=== PATIENT | female | born 1945 | race Caucasian/White ===

== ENCOUNTER 2018-12-30 07:07 | Day surgery (SDC) | payer MEDICARE ==
[2018-12-29 12:40] VITALS: BMI 24.5
--- NOTE | 2018-12-30 09:18 | RAD ---
Exam: COMPLETE SPINE MYELOGRAM: HISTORY: Neck pain, thoracic spine pain, lumbar spine pain. Exposure: 0.6 minutes, 99.8 mGy*cm^2 FINDINGS: [employer] radiographs: 2 views cervical spine, 2 views thoracic spine and 2 views lumbar spine demonstrate preservation of v ertebral body height. There is mild loss of disc space height throughout the spine. Osteophyte formation at C3-C4, C4-C5 is noted. Facet hypertrophy in the cervical spine as noted in the AP projec tion Thoracic spine vertebral body height is maintained. There is mild loss of disc space height in the mi dthoracic spine. Grade 1 anterolisthesis of L5 upon S1. TECHNIQUE: Consent obtained to perform a lumbar, thoracic and cervical myelogram. Patient's back was evaluated. The L2-L3 level was deemed appropriate. Skin was prepped and draped in a sterile fashion. 1% lidocaine, buffered with sodium bicarbonate was used for local anesthesia. Under fluoroscopic guidanc e, a 22-gauge spinal needle was advanced into the CSF space. A total of 10 cc of Isovue-M 300 contrast was administered intrathecally. Patient tolerated the procedure well. No immediate or postpr ocedure complications. IMPRESSION: Successful complete spine myelogram. Transcribed Date/Time: 12/30/2018 9:41 AM
--- NOTE | 2018-12-30 09:23 | CT ---
Exam: Post myelogram cervical spine CT HISTORY:Neck pain. COMPARISON: None Colon Cervical spine CT is performed in the axial length. Three-dimensional reformatted images are submitte d FINDINGS: Cervical spine vertebral body height is maintained. There is no evidence of fracture. Appropriate ali gnment of the lateral masses of C1 and C2 as well as the facets. Intact odontoid process. Soft tissue neck structures are unremarkable. Mildly heterogeneous thyroid gland. Upper mediastinum and luz maria ng apices are unremarkable. C2-C3: No significant central canal stenosis. Neural foramina are patent. Mild left facet hypertrophy . C3-C4: Broad-based disc osteophyte complex abuts the thecal sac. No significant central canal stenosi s. Mild right foraminal narrowing due to uncal vertebral hypertrophy. Left neural foramen is patent. C4-C5:No significant central canal stenosis. Neural foramina are patent. C5-C6: Broad-based disc osteophyte complex abuts the thecal sac. The midline ventral subarachnoid spa ce is effaced. There is mild deformity of the cervical cord. Overall, mild central canal stenosis. Right neural foramen is patent. Minimal left foraminal narrowing due to uncovertebral hypertrophy. C6-C7:No significant central canal stenosis or neural foraminal narrowing. C7-T1: No significant central canal stenosis or neural foraminal narrowing. IMPRESSION: 1.Degenerative changes throughout cervical spine without evidence of high-grade central canal stenosi s or high-grade foraminal narrowing. There is mild deformity of the cervical cord at C5-C6. 2. Mildly heterogeneous thyroid gland. Nonemergent thyroid ultrasound. Transcribed Date/Time: 12/30/2018 9:44 AM
--- NOTE | 2018-12-30 09:31 | CT ---
Exam: Postmyelogram CT thoracic spine: HISTORY: Back pain. FINDINGS: Limited evaluation of the mediastinum due to lack of IV contrast. Enlarged precarinal lymph node dane uring 1.4 x 1.1 cm. Visualized heart and aorta are unremarkable. Extensive bullous change in the superior segment of the right lower lobe, incompletely evaluated. The re is a spiculated opacity with central calcifications in the right lower lobe, likely representing scar tissue. Evaluation is incomplete. Linear and groundglass opacities in the right lower lobe are n oted. Conus medullaris terminates at the T12-L1 disc space. Thoracic spine vertebral body height is maintained. There is no fracture. No spondylolisthesis. No sp ondylolysis. T1-T2 through T3-T4: No significant posterior disc abnormality. T4-T5: Minimal central disc bulge. No significant central canal stenosis. T5-T6: Minimal disc material protrudes and abuts the thecal sac. No significant central canal stenosi s. T6-T7, T7-T8, T8-T9: There is central/right paracentral disc bulges without significant central canal stenosis. T9-T10, T10-T11, T11-T12 and T12-L1: No significant posterior disc material. Throughout the thoracic spine, no significant foraminal narrowing. The visualized thoracic cord is overall normal in size. IMPRESSION: 1. Lung parenchymal changes, incompletely evaluated. Dedicated chest CT is recommended. 2. Degenerative changes of the thoracic spine without high-grade central canal stenosis. Neural fora carmen are patent. 3. No evidence of thoracic spine fracture. CODE T Transcribed Date/Time: 12/30/2018 10:01 AM
--- NOTE | 2018-12-30 09:47 | CT ---
Exam: Postmyelogram lumbar spine CT: HISTORY: Low back pain. FINDINGS: Lumbar spine vertebral body height is maintained. No fracture. No spondylolisthesis or spondylolysis. No retroperitoneal mass, lymphadenopathy or hematoma. Symmetric attenuation of the psoas muscles. Vis ualized solid organs and alimentary canal are grossly unremarkable. Conus medullaris terminates at the T12-L1 disc space. T11-T12 and T12-L1: No significant central canal stenosis or neural foraminal narrowing. L1-L2: No significant central canal stenosis or neural foraminal narrowing. L2-L3: No significant central canal stenosis or neural foraminal narrowing. L3-L4: Generalized disc bulge, ligamentum flavum thickening and facet hypertrophy result in mild cent ral canal stenosis. Right neural foramen is patent. Minimal left foraminal narrowing. L4-L5: Vacuum disc phenomenon with a generalized disc bulge. There is no significant central canal st enosis. There is mild narrowing of the left subarticular zone secondary to disc material. There is minimal mass effect without obscuration of the traversing left L5 nerve root. Bilaterally, neural for jakob are minimally narrowed. L5-S1: No significant central canal stenosis or neural foraminal narrowing. IMPRESSION: No significant canal stenosis or neural foraminal narrowing. Minimal disc material in the left subart icular zone at L4-L5, abutting but not causing significant mass effect, traversing left L5 nerve root. Transcribed Date/Time: 12/30/2018 10:18 AM
[2018-12-30] MEDS ORDERED: Iopamidol-M 300 61% 15 ML VIAL ONE (11:09)
== END 2018-12-30 09:45 | disposition home or self-care (01) ==
LOC: RAD 07:07
PROVIDERS: ATTEND Neurological Surgery
PROC: B01B1ZZ Fluoroscopy of Spinal Cord using Low Osmolar Contrast (ICD-10-PCS; principal; 2018-12-30)
DX: M47.812 Spondylosis without myelopathy or radiculopathy, cervical region (principal); M47.814 Spondylosis without myelopathy or radiculopathy, thoracic region; I10 Essential (primary) hypertension; I48.91 Unspecified atrial fibrillation; E03.9 Hypothyroidism, unspecified; Z79.01 Long term (current) use of anticoagulants; Z79.899 Other long term (current) drug therapy; Z95.0 Presence of cardiac pacemaker
CPT/HCPCS: 62305; 72126; 72129; 72132; Q9967